=== PATIENT | female | born 1965 | race African-American/Black ===

== ENCOUNTER 2018-04-04 20:26 | Emergency (ER) | payer OTHER ==
[~2018-04-04] VITALS: Ht 149.9 cm; Wt 68.0 kg
[2018-04-04] MEDS ORDERED: LIPITOR10 MG PO (21:20)
[2018-04-04] MEDS ORDERED: LISINOPRIL5 MG PO (21:20)
[2018-04-04] MEDS ORDERED: TRAMADOL 50 MG50 MG PO (21:20)
[2018-04-04] MEDS ORDERED: METFORMIN HCL500 MG PO (21:21)
[2018-04-04] MEDS ORDERED: NOVOLOG100 UNIT/M SUBQ (21:21)
[2018-04-04] MEDS ORDERED: LANTUS100 UNIT/M SUBQ (21:21)
[2018-04-04 21:33] LABS: ABSOLUTE NEUTROPHILS 7.1 thou/uL (1.4-8.2); BASOPHILS 1.8 % (0.0-2.0); EOSINOPHILS 0.3 % (0.0-3.0); HEMATOCRIT 47.1 % (37.0-47.0); HEMOGLOBIN 15.3 gm/dL (12.0-15.0); LYMPHOCYTES 30.1 % (24.0-44.0); MCHC 32.5 g/dL (28.0-37.0); MCV 80.2 fL (80.0-100.0); MONOCYTES 5.8 % (1.0-8.0); PLATELET COUNT 499 thou/uL (150-400); RBC 5.88 mil/uL (4.20-5.00); RDW 14.1 % (10.5-14.5); WBC 11.4 thou/uL (4.0-11.0)
[2018-04-04 21:36] LABS: URINE CLARITY CLEAR; URINE COLOR YELLOW; URINE SPECIFIC GRAVITY 1.025 (1.005-1.035)
[2018-04-04 21:37] LABS: ICTOTEST (BILI CONFIRMATORY) Negative (Negative); URINE BILIRUBIN NEGATIVE (Negative); URINE BLOOD TRACE (Negative); URINE GLUCOSE-RANDOM* 3+ (Negative); URINE KETONES 2+ (Negative); URINE LEUKOCYTES-REFLEX NEGATIVE (Negative); URINE NITRITE-REFLEX NEGATIVE (Negative); URINE PROTEIN (DIPSTICK) 2+ (Negative); URINE UROBILINOGEN 0.2 E.U./dl (0.2-1.0)
[2018-04-04 21:40] LABS: CALCIUM 9.8 mg/dL (8.5-10.1); POTASSIUM 4.3 mmol/L (3.5-5.1)
[2018-04-04 21:46] LABS: ALBUMIN 3.9 g/dL (3.4-5.0); TOTAL BILIRUBIN 0.6 mg/dL (<0.1-1.0); TOTAL PROTEIN 8.9 g/dL (6.4-8.2)
[2018-04-04 22:00] LABS: CASTS None Seen /LPF (None Seen); CRYSTALS None Seen /LPF (None Seen)
[2018-04-04 22:01] LABS: SQUAMOUS >10 Many /LPF (0-3); URINE RBC 0-2 Rare /HPF (0-2); URINE WBC-REFLEX 0-5 Rare /HPF (0-5); YEAST-REFLEX Present (None Seen)
[2018-04-05] MEDS ORDERED: ZOFRAN ODT4 MG PO (01:48)
[2018-04-05 01:59] VITALS: BP 152/80
== END 2018-04-05 02:07 | disposition home or self-care (01) ==
LOC: ER 20:26
PROVIDERS: Emergency Medicine
DX: R11.2 Nausea with vomiting, unspecified (principal); R10.13 Epigastric pain; E11.9 Type 2 diabetes mellitus without complications; M19.90 Unspecified osteoarthritis, unspecified site; E78.00 Pure hypercholesterolemia, unspecified